=== PATIENT | female | born 1930 | race Caucasian/White ===

== ENCOUNTER → 2017-06-19 | Emergency (ER) | payer OTHER ==
[~2017-06-19] VITALS: Ht 162.6 cm; Wt 77.1 kg
[~2017-06-19] MED LIST: GLIMEPIRIDE2 MG; LOSARTAN POTASS50 MG
== END ==
LOC: ER 05:31
DX: S00.01XA Abrasion of scalp, initial encounter (principal); W06.XXXA Fall from bed, initial encounter; Y93.84 Activity, sleeping; Y92.092 Bedroom in other non-institutional residence as the place of occurrence of the external cause; Y99.8 Other external cause status